=== PATIENT | male | born 2000 | race Caucasian/White ===

== ENCOUNTER 2021-04-06 14:38 | Emergency (ER) | payer OTHER, SELFPAY ==
[2021-04-06 14:41] VITALS: BP 131/64; PULSE 101; RESP 14; TEMP 36.2; O2SAT 99
--- NOTE | 2021-04-06 14:53 | ED.NAVMDI ---
HPI - Nausea/Vomiting/Diarrhea General Chief complaint: Nausea/Vomiting/Diarrhea Stated complaint: vomiting blood Time Seen by Provider: 04/06/21 14:49 Related Data Allergies Allergy/AdvReac Type Severity Reaction Status Date / Time No Known Allergies Allergy Verified 04/06/21 14:50 Course Vital Signs Vital signs: Vital Signs Temperature 36.2 C L 04/06/21 14:41 Pulse Rate 101 H 04/06/21 14:41 Respiratory Rate 14 04/06/21 14:41 Blood Pressure 131/64 04/06/21 14:41 Pulse Oximetry 99 04/06/21 14:41 Temperature 36.2 C L 04/06/21 14:41 Pulse Rate 101 H 04/06/21 14:41 Respiratory Rate 14 04/06/21 14:41 Blood Pressure 131/64 04/06/21 14:41 Pulse Oximetry 99 04/06/21 14:41
[2021-04-06] MEDS: SODIUM CHLORIDE 0.9% IV 1,000 ML 999 ML IV CONT (15:09)
[2021-04-06] MEDS: PANTOPRAZOLE SODIUM IV 40 MG VIAL IV PUSH (15:15)
[2021-04-06 15:17] LABS: Hematocrit 47.6 % (42.0-52.0); Hemoglobin 16.3 g/dL (14.0-18.0); Mean Corpuscular HGB Conc 34.2 g/dl (32-36); Mean Corpuscular Hemoglobin 31.1 pg (26-34); Mean Corpuscular Volume 90.8 fl (80-100); Mean Platelet Volume 10.3 fl (7.4-10.4); Platelet Count Result 225 k/mm3 (150-375); Red Blood Count 5.24 M/mm3 (4.6-6.20); Red Cell Distribution Width 12.7 % (11.5-14.5); White Blood Count 12.5 K/mm3 (4.5-10.0)
[2021-04-06] MEDS: ONDANSETRON INJ 4 MG/2 ML VIAL IV PUSH (15:17)
[2021-04-06 15:24] LABS: Add Urine Microscopic? YES; Appearance Urine Clear (Clear); Bilirubin Urine Negative (Negative); Blood Urine Negative (Negative); Color Urine Amber (Yellow); Glucose Urine UA Negative (Negative); Ketones Urine Negative (Negative); Leukocyte Esterase Ur Negative LEU/UL (Negative); Mucus Urine Heavy /lpf; Nitrate Urine Negative (Negative); Protein Urine 1+ mg/dL (Negative); RBC Urine 0-2 /hpf (0-2); Specific Grav Ur 1.028 (1.001-1.035); Urobilinogen Urine Negative mg/dL (<2.0); WBC Urine 0-3 /hpf
[2021-04-06 15:29] LABS: Alanine Aminotransferase 49 U/L (4-50); Alkaline Phosphatase 119 U/L (38-126); Anion Gap 11 mmol/L (8-16); Aspartate Amino Transferase 36 U/L (17-59); Bilirubin,Total 1.4 mg/dL (0.2-1.3); Blood Urea Nitrogen 13 mg/dL (9-20); Calcium 9.7 mg/dL (8.4-10.2); Carbon Dioxide 27 mmol/L (22-30); Chloride 100 mmol/L (98-107); Estimated CRCL calculation 179 ml/min; Estimated Glomerular Filt Rate > 60; Glucose 114 mg/dL (75-110); Lipase 25 U/L (23-300); Potassium 3.9 mmol/L (3.4-5.0); Sodium 138 mmol/L (137-145)
[2021-04-06 15:45] LABS: Band Neutrophils Percent 10 % (0-6); Monocytes Absolute Manual 0.62 K/mm3 (0.1-0.90); Monocytes Percent Manual 5 % (3-9); Neutrophils Absolute Manual 11.37 K/mm3 (1.3-6.7); Neutrophils Percent Manual 81 % (46-73); Platelet Estimate Adequate (Adequate); Total Cells Counted 100
[2021-04-06] MEDS: HYOSCYAMINE SULFATE 0.125 MG TABLET PO (15:51)
--- NOTE | 2021-04-06 15:53 | ED.GENADULT ---
HPI - General Adult General Chief complaint: Nausea/Vomiting/Diarrhea Stated complaint: vomiting blood Time Seen by Provider: 04/06/21 14:49 Source: patient, family and RN notes reviewed Mode of arrival: ambulatory Limitations: no limitations History of Present Illness HPI narrative: Patient is a 21-year-old male who presents to emergency department for evaluation of nausea vomiting and diarrhea that began this morning patient has been at home with family members with similar symptoms patient has not taken anything for his symptoms notes he has inability to tolerate p.o. intake notes discomfort of the abdomen secondary to nausea and vomiting patient on arrival does not appear distressed or uncomfortable Related Data Allergies Allergy/AdvReac Type Severity Reaction Status Date / Time No Known Allergies Allergy Verified 04/06/21 14:50 Review of Systems Review of Systems: All systems reviewed & are unremarkable except as noted in HPI and below Exam Narrative: Exam Narrative: GENERAL: Well-appearing, well-nourished, and in no acute distress. HEAD: Normocephalic, atraumatic. EYES: PERRLA and EOMI. ENT: Nares clear, no rhinorrhea or epistaxis. Mucous membranes moist. CHEST: Clear to auscultation. No respiratory distress. No wheezes rales or rhonchi HEART: Regular rate and rhythm. No murmur heard. Normal peripheral pulses. ABDOMEN: Soft, generalized tenderness, nondistended EXTREMITIES: Normal range of motion. No edema. SKIN: Warm, dry, no rash. NEURO: No focal deficits. Alert and oriented x3. PSYCH: Normal mood and affect. Course Course Emergency Course: Patient was hydrated evaluated with improvement other family members with similar symptoms felt that the patient can likely be discharged at this time given his improvement and tolerating p.o. intake will be provided with reasons to follow-up afebrile nontoxic-appearing no distress Vital Signs Vital signs: Vital Signs Temperature 97.1 F L 04/06/21 14:41 Pulse Rate 101 H 04/06/21 14:41 Respiratory Rate 14 04/06/21 14:41 Blood Pressure 131/64 04/06/21 14:41 Pulse Oximetry 99 04/06/21 14:41 Temperature 97.1 F L 04/06/21 14:41 Pulse Rate 101 H 04/06/21 14:41 Respiratory Rate 14 04/06/21 14:41 Blood Pressure 131/64 04/06/21 14:41 Pulse Oximetry 99 04/06/21 14:41 Medical Decision Making MDM Narrative Medical decision making narrative: Patient evaluated with vomiting diarrhea history acute onset improvement of symptoms hydrated the emergency department will be discharged home treated symptomatically and given reasons to return Vital Signs Vital Signs: Vital Signs Temperature 97.1 F L 04/06/21 14:41 Pulse Rate 101 H 04/06/21 14:41 Respiratory Rate 14 04/06/21 14:41 Blood Pressure 131/64 04/06/21 14:41 Pulse Oximetry 99 04/06/21 14:41 Temperature 97.1 F L 04/06/21 14:41 Pulse Rate 101 H 04/06/21 14:41 Respiratory Rate 14 04/06/21 14:41 Blood Pressure 131/64 04/06/21 14:41 Pulse Oximetry 99 04/06/21 14:41 Lab Data Result diagrams: 04/06/21 15:09 04/06/21 15:10 Labs: Lab Results 04/06/21 04/06/21 04/06/21 Range/Units 15:09 15:09 15:10 WBC 12.5 H (4.5-10.0) K/mm3 RBC 5.24 (4.6-6.20) M/mm3 Hgb 16.3 (14.0-18.0) g/dL Hct 47.6 (42.0-52.0) % MCV 90.8 (80-100) fl MCH 31.1 (26-34) pg MCHC 34.2 (32-36) g/dl RDW 12.7 (11.5-14.5) % Plt Count 225 (150-375) k/mm3 MPV 10.3 (7.4-10.4) fl Immature Gran % (Auto) Not Reportable Neut % (Auto) Not Reportable Lymph % (Auto) Not Reportable [place] % (Auto) Not Reportable Eos % (Auto) Not Reportable Baso % (Auto) Not Reportable Lymph # (Auto) Not Reportable [place] # (Auto) Not Reportable Eos # (Auto) Not Reportable Baso # (Auto) Not Reportable Abs Immat Gran (auto) Not Reportable Absolute Neuts (auto) Not Reportable Absolute Nucleate
[2021-04-06 16:00] VITALS: BP 129/62; PULSE 75; RESP 18; O2SAT 100
[2021-04-06] MEDS: LACTATED RINGERS 1,000 ML 999 ML IV CONT (16:03)
== END 2021-04-06 17:51 | disposition home or self-care (01) ==
PROVIDERS: Emergency Medicine Emergency Medical Services; Emergency Provider Emergency Medicine; PCP Family Medicine
DX: K52.9 Noninfective gastroenteritis and colitis, unspecified (principal); R10.9 Unspecified abdominal pain
CPT/HCPCS: 36415; 80053; 81001; 83690; 85025; 96361; 96374; 96375; 99284; A9270; C9113; J0131; J2405; J7030; J7120

== ENCOUNTER 2022-02-03 10:06 | Emergency (ER) | payer OTHER, SELFPAY ==
--- NOTE | 2022-02-03 10:11 | ED.URI ---
HPI - URI/Sore Throat General Chief Complaint: Upper Respiratory Infection Stated Complaint: sore throat Time Seen by Provider: 02/03/22 10:12 Source: patient and RN notes reviewed History of Present Illness HPI Narrative: Patient is a 21-year-old male who presents the urgent care with complaints of a sore throat that started on Monday. Patient states he has not felt great since Monday with 1 episode of vomiting. Patient reports of subjective fever with chills and sweats and decreased appetite. Patient has been taking ibuprofen, Sudafed and DayQuil. Patient denies of any ill contacts. Patient is not concerned of Covid. No other acute complaints. No acute distress noted. Patient aware of the plan of care. Some parts of this dictation were generated by voice recognition software and may contain typographical and/or grammatical inaccuracies. Related Data Allergies Allergy/AdvReac Type Severity Reaction Status Date / Time No Known Allergies Allergy Verified 04/06/21 14:50 Review of Systems Review of Systems: CONSTITUTIONAL: Reports of subjective fever with chills and sweats and fatigue EYES: Denies visual changes, redness, or discharge. ENT: Denies rhinorrhea, congestion, otalgia. Reports of sore throat CARDIOVASCULAR: Denies chest pain, palpitations, or edema. RESPIRATORY: Denies cough or dyspnea. GASTROINTESTINAL: Denies abdominal pain, nausea, vomiting, or diarrhea. GENITOURINARY: Denies dysuria or hematuria. SKIN: Denies rash or itching. MUSCULOSKELETAL: Denies back pain, joint pain, or myalgia. NEUROLOGIC: Denies headache, numbness, or weakness. All other systems reviewed are negative, except as documented in HPI. PMFSH Comments At the time of my signature, I reviewed and agree with the nursing past medical, surgical, social, and family history. There is no relevant family history pertinent to the patient complaint. Exam Narrative: GENERAL: This is a well-nourished, well-developed patient, in no apparent distress. HEAD: normocephalic, atraumatic. EYES: PERRL. Sclera clear/white. Vision is grossly intact. EARS: External ears normal, auditory canals clear and without drainage, TMs normal without perforation. Hearing grossly intact. NOSE: External nose normal with no obvious nasal discharge, nares without redness, no rhinorrhea. THROAT: Mucous membranes moist, mild erythema noted posterior pharynx with moderate postnasal drainage NECK: Neck supple, non-tender mild to moderate bilateral submandibular lymphadenopathy CARDIOVASCULAR: Regular rate and rhythm without murmurs, gallops, or rubs. RESPIRATORY: Clear to auscultation. Breath sounds equal bilaterally. No wheezes, rales, or rhonchi. SKIN: Slightly flushed. Warm, intact with no suspicious lesions or rash, good texture and turgor. NEURO: awake, alert, and oriented to person, place and time. There were no obvious focal neurologic abnormalities. EXTREMITIES: No clubbing, cyanosis, or edema. Course Course Level of Care: Express Care Visit Vital Signs Vital signs: Vital Signs Temperature 97.6 F 02/03/22 10:14 Pulse Rate 80 02/03/22 10:14 Respiratory Rate 16 02/03/22 10:14 Blood Pressure 141/94 H 02/03/22 10:14 Pulse Oximetry 99 02/03/22 10:14 Temperature 97.6 F 02/03/22 10:14 Pulse Rate 80 02/03/22 10:14 Respiratory Rate 16 02/03/22 10:14 Blood Pressure 141/94 H 02/03/22 10:14 Pulse Oximetry 99 02/03/22 10:14 Reviewed-patient is informed that they may have pre-hypertension or hypertension based on a blood pressure reading in the department. I recommend the patient call the primary care provider listed on their discharge instructions or a physician of their choice this week to arrange follow-up for further evaluation of possible pre-hypertension or hypertension. MDM - URI/Sore Throat MDM Narrative Medical decision making narrative: Reviewed lab results with the patient. He is aware that strep swab was positive. Advised the patient
[2022-02-03 10:14] VITALS: BP 141/94; PULSE 80; RESP 16; TEMP 36.4; O2SAT 99
== END 2022-02-03 10:35 | disposition home or self-care (01) ==
PROVIDERS: Emergency Provider Nurse Practitioner Family; PCP Family Medicine
DX: J02.0 Streptococcal pharyngitis (principal)
CPT/HCPCS: 87880; 99213; G0463

== ENCOUNTER → 2022-02-24 10:11 | Outpatient (CLI) | payer OTHER, SELFPAY ==
--- NOTE | ~2022-02-24 | XR_ITS ---
EXAMINATION: XR lumbar spine min 4V EXAM DATE: 02/24/2022 10:32 INDICATION: Low Back Pain Into Left Posterior Hip X 1yr No Injury. TECHNIQUE: Lumber spine frontal, lateral, bilateral oblique projections. Coned down frontal and lat eral L5-S1 lumbar projections for interpretation. There is no prior study for comparison. FINDINGS: No spondylolysis. Mild L4-5 and L5-S1 facet arthropathy. The vertebral bodies are aligned i n the AP dimension. Vertebral body and disc heights are well-maintained. Sacrum, sacroiliac joints, s acral arcuate lines are intact. Paraspinal soft tissue is unremarkable. IMPRESSION: Mild lower lumbar facet arthropathy, otherwise unremarkable exam. Reviewed, dictated and finalized at location A.
== END ==
PROVIDERS: PCP Chiropractor; Visit Provider Chiropractor
DX: M54.50 Low back pain, unspecified (principal)
CPT/HCPCS: 72110

== ENCOUNTER 2022-06-18 19:44 | Emergency (ER) | payer OTHER, SELFPAY ==
[2022-06-18] VITALS (9 sets, daily range): BP systolic 107–125; BP diastolic 75–89; PULSE 60–75; RESP 16–18; TEMP 36.6; O2SAT 98–100
[2022-06-18 20:04] LABS: Basophils Percent Auto 0.3 % (0.2-1.2); Eosinophils Percent Auto 0.4 % (0-4.4); Hematocrit 45.4 % (42.0-52.0); Hemoglobin 15.3 g/dL (14.0-18.0); Immature Granulocyte Absolute 0.01 K/mm3 (0.00-0.031); Immature Granulocyte Percent A 0.1 % (0-0.5); Lymphocytes Absolute Auto 0.89 K/mm3 (0.9-3.2); Lymphocytes Percent Auto 12.5 % (18.3-44.2); Mean Corpuscular HGB Conc 33.7 g/dl (32-36); Mean Corpuscular Hemoglobin 30.4 pg (26-34); Mean Corpuscular Volume 90.3 fl (80-100); Mean Platelet Volume 9.9 fl (7.4-10.4); Monocytes Absolute Auto 0.4 K/mm3 (0.1-0.6); Monocytes Percent Auto 6.2 % (2.6-8.5); Neutrophils Absolute Auto 5.7 K/mm3 (1.3-6.7); Neutrophils Percent Auto 80.5 % (45.5-73.1); Platelet Count Result 214 k/mm3 (150-375); Red Blood Count 5.03 M/mm3 (4.6-6.20); Red Cell Distribution Width 12.6 % (11.5-14.5); White Blood Count 7.1 K/mm3 (4.5-10.0)
[2022-06-18 20:17] LABS: Alanine Aminotransferase 44 U/L (6-50); Albumin Level 4.9 g/dL (3.5-5.1); Alkaline Phosphatase 155 U/L (38-126); Anion Gap 12 mmol/L (8-16); Aspartate Amino Transferase 37 U/L (17-59); Bilirubin,Total 1.1 mg/dL (0.2-1.3); Blood Urea Nitrogen 13 mg/dL (9-20); Calcium 9.1 mg/dL (8.4-10.2); Carbon Dioxide 28 mmol/L (22-30); Chloride 98 mmol/L (98-107); Estimated CRCL calculation 166 ml/min; Estimated Glomerular Filt Rate > 60; Glucose 116 mg/dL (65-110); Lipase 30 U/L (23-300); Potassium 4.2 mmol/L (3.4-5.0); Sodium 138 mmol/L (137-145)
[2022-06-18 20:28] LABS: Appearance Urine Clear (Clear); Bilirubin Urine Negative (Negative); Blood Urine Negative (Negative); Color Urine Yellow (Yellow); Glucose Urine UA Negative (Negative); Ketones Urine Negative (Negative); Leukocyte Esterase Ur Negative LEU/UL (Negative); Nitrate Urine Negative (Negative); Protein Urine Negative (Negative)
[2022-06-18 20:31] LABS: Mucus Urine Rare /lpf; RBC Urine 0-2 /hpf (0-2); Squamous Epithelial Cell Urine Rare /hpf (Few)
[2022-06-18 20:32] LABS: Add Urine Microscopic? YES
--- NOTE | 2022-06-18 21:07 | ED.NAVMDI ---
HPI - Nausea/Vomiting/Diarrhea General Chief complaint: Nausea/Vomiting/Diarrhea Stated complaint: N/V Time Seen by Provider: 06/18/22 21:00 History of Present Illness HPI Narrative: 22-year-old male presents emergency room for evaluation of nausea and vomiting since 3:00 this afternoon. Patient states he believes he got sick from what he ate for lunch. Reports occasional abdominal cramping following the vomiting. Reports vomitus is nonbilious and nonbloody. Denies any constipation or diarrhea. Related Data Allergies Allergy/AdvReac Type Severity Reaction Status Date / Time No Known Allergies Allergy Verified 06/18/22 21:24 Review of Systems Review of Systems: CONSTITUTIONAL: Denies fever, chills, or sweats. EYES: Denies visual changes, redness, or discharge. ENT: Denies rhinorrhea, congestion, sore throat, or otalgia. CARDIOVASCULAR: Denies chest pain, palpitations, or edema. RESPIRATORY: Denies cough or dyspnea. GASTROINTESTINAL: Reports nausea and vomiting GENITOURINARY: Denies dysuria or hematuria. SKIN: Denies rash or itching. MUSCULOSKELETAL: Denies back pain, joint pain, or myalgia. NEUROLOGIC: Denies headache, numbness, dizziness, or weakness. PSYCHIATRIC: Denies anxiety or depression. Course Course Emergency Course: GENERAL: Well-appearing, well-nourished, no physical limitations, and in no acute distress. HEAD: Normocephalic, atraumatic. EYES: Conjunctivae normal, PERRLA and EOMI. CHEST: Clear to auscultation. No respiratory distress. No wheezes rales or rhonchi. No tenderness. HEART: Regular rate and rhythm. No murmur heard. Normal peripheral pulses. ABDOMEN: Soft, nontender, nondistended, normal active bowel sounds. EXTREMITIES: Normal range of motion. No edema. No clubbing or cyanosis SKIN: Warm, dry, no rash. No noted wounds NEURO: No focal deficits. Alert and oriented x3. MAEW. CN's II-XI intact bilaterally, normal gait PSYCH: Cooperative. Normal mood and affect. Vital Signs Vital signs: Vital Signs Temperature 36.6 C 06/18/22 19:50 Pulse Rate 60 06/18/22 19:50 Respiratory Rate 16 06/18/22 19:50 Blood Pressure 125/75 06/18/22 19:50 Pulse Oximetry 100 07/30/22 19:50 Temperature 36.6 C 06/18/22 19:50 Pulse Rate 75 06/18/22 21:47 Respiratory Rate 18 06/18/22 21:47 Blood Pressure 107/89 06/18/22 21:47 Pulse Oximetry 99 06/18/22 22:15 MDM - Nausea/Vomiting/Diarrhea Lab Data Result diagrams: 06/18/22 19:59 06/18/22 19:59 Labs: Lab Results 06/18/22 06/18/22 06/18/22 Range/Units 19:59 19:59 20:22 WBC 7.1 (4.5-10.0) K/mm3 RBC 5.03 (4.6-6.20) M/mm3 Hgb 15.3 (14.0-18.0) g/dL Hct 45.4 (42.0-52.0) % MCV 90.3 (80-100) fl MCH 30.4 (26-34) pg MCHC 33.7 (32-36) g/dl RDW 12.6 (11.5-14.5) % Plt Count 214 (150-375) k/mm3 MPV 9.9 (7.4-10.4) fl Immature Gran % (Auto) 0.1 (0-0.5) % Neut % (Auto) 80.5 H (45.5-73.1) % Lymph % (Auto) 12.5 L (18.3-44.2) % [place] % (Auto) 6.2 (2.6-8.5) % Eos % (Auto) 0.4 (0-4.4) % Baso % (Auto) 0.3 (0.2-1.2) % Lymph # (Auto) 0.89 L (0.9-3.2) K/mm3 [place] # (Auto) 0.4 (0.1-0.6) K/mm3 Eos # (Auto) 0.0 (0-0.3) K/mm3 Baso # (Auto) 0.0 (0.0-0.1) K/mm3 Abs Immat Gran (auto) 0.01 (0.00-0.031) K/mm3 Absolute Neuts (auto) 5.7 (1.3-6.7) K/mm3 Absolute Nucleated RBC 0.0 (0.0-0.012) K/mm3 Nucleated RBC % 0.0 (0.0-0.2) % Sodium 138 (137-145) mmol/L Potassium 4.2 (3.4-5.0) mmol/L Chloride 98 (98-107) mmol/L Carbon Dioxide 28 (22-30) mmol/L Anion Gap 12 (8-16) mmol/L BUN 13 (9-20) mg/dL Creatinine 0.90 (0.7-1.3) mg/dL Estim Creat Clear Calc 166 ml/min Estimated GFR > 60 (59 - ) Glucose 116 H (65-110) mg/dL Calcium 9.1 (8.4-10.2) mg/dL Total Bilirubin 1.1 (0.2-1.3) mg/dL AST 37 (17-59) U/L ALT 44 (6-50) U/L Alkaline Phosphatase 155 H
[2022-06-18] MEDS: DICYCLOMINE HCL INJ 20 MG/2 ML VIAL IM (21:26)
[2022-06-18] MEDS: SODIUM CHLORIDE 0.9% IV 1,000 ML 999 ML IV CONT (21:26)
[2022-06-18] MEDS: ONDANSETRON INJ 4 MG/2 ML VIAL IV PUSH (21:26)
== END 2022-06-18 22:33 | disposition home or self-care (01) ==
PROVIDERS: Emergency Medicine; Emergency Provider Nurse Practitioner Family; PCP Chiropractor
DX: A05.9 Bacterial foodborne intoxication, unspecified (principal)
CPT/HCPCS: 36415; 80053; 81001; 83690; 85025; 96361; 96372; 96374; 99284; J0500; J2405; J7030

== ENCOUNTER 2022-06-19 14:04 | Emergency (ER) | payer OTHER, SELFPAY ==
--- NOTE | ~2022-06-19 | CT_ITS ---
EXAMINATION: CT brain wo con DATE: 06/19/2022 17:10 INDICATION: dizziness . TECHNIQUE: Computed tomography (CT) of the head was performed without intravenous contrast. The mA wa s adjusted according to patient size. Iterative reconstruction technique was employed. The dose-lengt h product was 605.33 mGy-cm. COMPARISON: None FINDINGS: No acute intracranial hemorrhage or extra-axial fluid collection. No hydrocephalus, mass, or herniation. No acute ischemic infarct. Unremarkable dural venous sinus attenuation. No acute osseous abnormality. The aerated spaces are clear. IMPRESSION: No acute intracranial process. Reviewed, dictated and finalized at location K.
[2022-06-19 14:13] VITALS: BP 135/91; PULSE 67; RESP 20; TEMP 36.2; O2SAT 100
--- NOTE | 2022-06-19 14:22 | ECG_ITS ---
Measurements Intervals [place] Rate: 67 P: -1 MS: 160 QRS: 61 QRSD: 101 T: 27 QT: 392 QTc: 414 Interpretive Statements SINUS RHYTHM MINIMAL Q WAVES- INF/LAT LEADS BASELINE ARTIFACT- V1-V2 BORDERLINE ECG Electronically Signed On 06-19-2022 21:50:24 CDT by Juancho Baeza D.O.
--- NOTE | 2022-06-19 16:50 | ED.GENADULT ---
HPI - General Adult General Chief complaint: Unspecified Stated complaint: dizzy Time Seen by Provider: 06/19/22 16:55 History of Present Illness HPI narrative: 22-year-old male presents to the emergency room for reevaluation of nausea vomiting and a new onset of dizziness. Patient was seen here yesterday and diagnosed with gastroenteritis/food poisoning. Patient states this morning he began experiencing dizziness, and states the room was spinning. Patient's girlfriend's mother told him to come here because he was not getting enough oxygen to his brain. Related Data Allergies Allergy/AdvReac Type Severity Reaction Status Date / Time No Known Allergies Allergy Verified 06/18/22 21:24 Review of Systems Review of Systems: CONSTITUTIONAL: Denies fever, chills, or sweats. EYES: Denies visual changes, redness, or discharge. ENT: Denies rhinorrhea, congestion, sore throat, or otalgia. CARDIOVASCULAR: Denies chest pain, palpitations, or edema. RESPIRATORY: Denies cough or dyspnea. GASTROINTESTINAL: GENITOURINARY: Denies dysuria or hematuria. SKIN: Denies rash or itching. MUSCULOSKELETAL: Denies back pain, joint pain, or myalgia. NEUROLOGIC: Reports dizziness PSYCHIATRIC: Denies anxiety or depression. Exam Narrative: GENERAL: Well-appearing, well-nourished, no physical limitations, and in no acute distress. HEAD: Normocephalic, atraumatic. EYES: Conjunctivae normal, PERRLA and EOMI. ENT: External nose normal, Nares clear, no rhinorrhea or epistaxis. Mucous membranes moist. Oropharynx without tonsillar hypertrophy exudate or other lesions. External ears normal, bilateral TMs normal bilaterally with mild ceruminosis NECK: Supple. No meningeal signs. No adenopathy or masses. No carotid bruits or JVD CHEST: Clear to auscultation. No respiratory distress. No wheezes rales or rhonchi. No tenderness. HEART: Regular rate and rhythm. No murmur heard. Normal peripheral pulses. ABDOMEN: Soft, nontender, nondistended, normal active bowel sounds. EXTREMITIES: Normal range of motion. No edema. No clubbing or cyanosis SKIN: Warm, dry, no rash. No noted wounds NEURO: No focal deficits. Alert and oriented x3. MAEW. CN's II-XI intact bilaterally, normal gait PSYCH: Cooperative. Normal mood and affect. Course Vital Signs Vital signs: Vital Signs Temperature 36.2 C L 06/19/22 14:13 Pulse Rate 06/19/22 14:13 Respiratory Rate 06/19/22 14:13 Blood Pressure 135/91 H 06/19/22 14:13 Pulse Oximetry 100 06/19/22 14:13 Oxygen Delivery Room Air 06/19/22 14:13 Temperature 36.2 C L 06/19/22 14:13 Pulse Rate 06/19/22 14:13 Respiratory Rate 06/19/22 14:13 Blood Pressure 135/91 H 06/19/22 14:13 Pulse Oximetry 100 06/19/22 14:13 Oxygen Delivery Room Air 06/19/22 14:13 Medical Decision Making Vital Signs Vital Signs: Vital Signs Temperature 36.2 C L 06/19/22 14:13 Pulse Rate 06/19/22 14:13 Respiratory Rate 06/19/22 14:13 Blood Pressure 135/91 H 06/19/22 14:13 Pulse Oximetry 06/19/22 14:13 Oxygen Delivery Room Air 06/19/22 14:13 Temperature 36.2 C L 06/19/22 14:13 Pulse Rate 06/19/22 14:13 Respiratory Rate 06/19/22 14:13 Blood Pressure 135/91 H 06/19/22 14:13 Pulse Oximetry 06/19/22 14:13 Oxygen Delivery Room Air 06/19/22 14:13 Lab Data Result diagrams: 06/19/22 17:31 06/19/22 17:31 Labs: Lab Results 06/19/22 06/19/22 06/19/22 Range/Units 17:31 17:31 17:31 WBC 9.2 (4.5-10.0) K/mm3 RBC 5.29 (4.6-6.20) M/mm3 Hgb 16.0 (14.0-18.0) g/dL Hct 47.3 (42.0-52.0) % MCV 89.4 (80-100) fl MCH 30.2 (26-34) pg MCHC 33.8 (32-36) g/dl RDW 12.6 (11.5-14.5) % Plt Count 244 (150-375) k/mm3 MPV 10.3 (7.4-10.4) fl Immature Gran % (Auto) 0.2 (0-0.5) % Neut % (Auto) 87.4 H (45.5-73.1) % Lymph % (Auto) 6.9 L (18.3-44.2) % [place] % (Auto) 5.3 (2.
[2022-06-19] MEDS: SODIUM CHLORIDE 0.9% IV 1,000 ML 999 ML IV CONT (17:28)
[2022-06-19] MEDS: METOCLOPRAMIDE HCL INJ 10 MG/2 ML VIAL IV PUSH (17:28)
[2022-06-19] MEDS: diphenhydrAMINE HCl INJ 50 MG/ML VIAL 25 MG IV PUSH (17:29)
[2022-06-19 17:37] LABS: Basophils Percent Auto 0.2 % (0.2-1.2); Hematocrit 47.3 % (42.0-52.0); Immature Granulocyte Absolute 0.02 K/mm3 (0.00-0.031); Immature Granulocyte Percent A 0.2 % (0-0.5); Lymphocytes Absolute Auto 0.63 K/mm3 (0.9-3.2); Lymphocytes Percent Auto 6.9 % (18.3-44.2); Mean Corpuscular HGB Conc 33.8 g/dl (32-36); Mean Corpuscular Hemoglobin 30.2 pg (26-34); Mean Corpuscular Volume 89.4 fl (80-100); Mean Platelet Volume 10.3 fl (7.4-10.4); Monocytes Absolute Auto 0.5 K/mm3 (0.1-0.6); Monocytes Percent Auto 5.3 % (2.6-8.5); Neutrophils Percent Auto 87.4 % (45.5-73.1); Platelet Count Result 244 k/mm3 (150-375); Red Blood Count 5.29 M/mm3 (4.6-6.20); Red Cell Distribution Width 12.6 % (11.5-14.5); White Blood Count 9.2 K/mm3 (4.5-10.0)
[2022-06-19 17:52] LABS: Alanine Aminotransferase 42 U/L (6-50); Albumin Level 4.9 g/dL (3.5-5.1); Alkaline Phosphatase 150 U/L (38-126); Anion Gap 15 mmol/L (8-16); Aspartate Amino Transferase 37 U/L (17-59); Bilirubin,Total 1.2 mg/dL (0.2-1.3); Blood Urea Nitrogen 10 mg/dL (9-20); Calcium 9.8 mg/dL (8.4-10.2); Carbon Dioxide 22 mmol/L (22-30); Chloride 103 mmol/L (98-107); Estimated CRCL calculation 166 ml/min; Estimated Glomerular Filt Rate > 60; Glucose 116 mg/dL (65-110); Sodium 140 mmol/L (137-145)
[2022-06-19 17:56] LABS: Troponin I < 0.012 ng/mL (0.000-0.034)
[2022-06-19 18:28] LABS: Amphetamine Screen Urine Negative (Negative); Barbiturate Screen Urine Negative (Negative); Benzodiazepines Screen Urine Negative (Negative); Cannabinoid Screen Urine Positive (Negative); Cocaine Screen Urine Negative (Negative); Methadone Screen Urine Negative (Negative); Opiate Screen Urine Negative (Negative); Phencyclidine Screen Urine Negative (Negative)
[2022-06-19 19:41] VITALS: BP 147/75; PULSE 65; RESP 20; O2SAT 100
== END 2022-06-19 19:42 | disposition home or self-care (01) ==
PROVIDERS: Emergency Medicine; Emergency Provider Nurse Practitioner Family; PCP Family Medicine
DX: R42 Dizziness and giddiness (principal); R94.31 Abnormal electrocardiogram [ECG] [EKG]
CPT/HCPCS: 36415; 70450; 80053; 80307; 84484; 85025; 93005; 96361; 96374; 96375; 99284; J1200; J2765; J7030

== ENCOUNTER → 2023-12-15 16:27 | Outpatient (CLI) | payer OTHER, SELFPAY ==
--- NOTE | ~2023-12-15 | XR_ITS ---
EXAMINATION: XR shoulder RT min 2V, XR clavicle RT DATE: 12/15/2023 16:51 INDICATION: Nontraumatic anterior right shoulder pain and swelling TECHNIQUE: 1. AP internally and externally rotated, AP oblique externally rotated and axillary views of the righ t shoulder were obtained. 2. AP and 10 degrees cephalad angled AP view of the right clavicle were obtained. COMPARISON: None FINDINGS: Normal alignment. No fracture. Glenohumeral joint is normal. Acromioclavicular joint is normal. Soft tissues are unremarkable. Visualized portion of the lungs are clear. IMPRESSION: Negative right shoulder and clavicle radiographs. Reviewed, dictated and finalized at location A. ECTOR IMPRESSION: Negative right shoulder and clavicle radiographs.
== END ==
PROVIDERS: PCP Chiropractor; Visit Provider Chiropractor
DX: M25.511 Pain in right shoulder (principal)
CPT/HCPCS: 73000; 73030

== ENCOUNTER 2024-01-01 09:07 | Emergency (ER) | payer OTHER, SELFPAY ==
[2024-01-01 09:14] VITALS: BP 128/58; PULSE 76; RESP 20; TEMP 36.6; O2SAT 100
--- NOTE | 2024-01-01 09:53 | ED.URI ---
HPI - URI/Sore Throat General Chief Complaint: Upper Respiratory Infection Stated Complaint: Sore Throat Time Seen by Provider: 01/01/24 09:45 Source: patient, RN notes reviewed and old records reviewed Mode of arrival: ambulatory Limitations: no limitations History of Present Illness HPI Narrative: 23-year-old male who presents to [facility] with complaints sore throat which started yesterday with increased symptoms today. Patient reports that he has been battling allergies for the past week and has been taking OTC sinus medication.Patient reports that girlfriend has been ill and was seen told she had virus. Patient reports no known fevers chills or body aches. MD elicited complaint: cough, sore throat, rhinorrhea and nasal congestion Pertinent past history: seasonal allergies Onset (ago): day(s) (day 2) Severity: moderate Able to tolerate fluids by mouth: Yes Exacerbating factors: swallowing Treatments prior to arrival: other (sinus medication) Related Data Home Medications Medication Instructions Recorded Confirmed buspirone 5 mg tablet 5 mg PO BID PRN 03/20/23 10/19/23 Allergies Allergy/AdvReac Type Severity Reaction Status Date / Time No Known Allergies Allergy Verified 10/19/23 09:36 Review of Systems Review of Systems: CONSTITUTIONAL: Denies malaise, chills, sweats, or fever. EYES: Denies visual changes, redness, or discharge. ENT: Reports rhinorrhea, congestion, sinus pain,no otalgia and positive for sore throat. CARDIOVASCULAR: Denies chest pain, palpitations, or edema. RESPIRATORY: Reports cough.? Denies dyspnea. GASTROINTESTINAL: Denies abdominal pain, nausea, vomiting, diarrhea SKIN: Denies rash or itching. MUSCULOSKELETAL: Denies myalgia. NEUROLOGIC: Denies headache. All systems reviewed & are unremarkable except as noted in HPI and below PMFSH Past Medical History Medical History Anxiety BMI 34.0-34.9,adult Encounter to establish care Generalized anxiety disorder with panic attacks Vertigo Family History Family History Sibling Asthma Depression Anxiety Mother Anxiety Depression Father Depression Anxiety Social History Social History Smoking status: Never smoker Alcohol intake: never Substance use: current Substance use type: marijuana Lack of Transportation: No Lack of Food: Never True Current Housing: I Have Housing Concerned About Future Housing: No Difficulty Paying Gas/Electric Bills: No Difficulty Paying for Meds: No Currently Unemployed: No Education: Associate Degree Difficulty w/ Childcare or Family Care: No Comments At time of signature, agree with nursing past medical, surgical, social and family history. There is no relevant family history pertinent to the presenting complaint Exam Narrative: GENERAL: Well-appearing, well-nourished, and in no acute distress. HEAD: Normocephalic EYES: PERRLA, conjunctivae clear ENT: Nares clear, turbinates edematous and erythematous, clear discharge. Mucous membranes moist. TM pearly mario with dull light reflex bilaterally; no tragal tenderness. Oropharynx erythematous without lesions. Tonsils mildly enlarged and without exudate, no drooling, no hoarseness, no trismus, uvula midline.post nasal discharge noted NECK: Supple. No lymphadenopathy CHEST: Clear to auscultation, breath sounds equal. No wheezing, rhonchi, rales, or stridor. No respiratory distress, speaks in full sentences.cough SAO2 100% on room air HEART: Regular rate and rhythm. No murmur heard. SKIN: Warm, dry, no rash. NEURO: Alert and oriented x3. PSYCH: Normal mood and affect Course Course Emergency Course: Patient is aware of diagnosis, understands and agrees to treatment plan.? Anticipatory guidance given.? Patient agrees to
== END 2024-01-01 10:11 | disposition home or self-care (01) ==
PROVIDERS: Emergency Provider Registered Nurse; PCP Nurse Practitioner Family
DX: J06.9 Acute upper respiratory infection, unspecified (principal); F41.9 Anxiety disorder, unspecified
CPT/HCPCS: 87081; 87880; 99213; G0463

== ENCOUNTER 2024-10-01 11:33 | Emergency (ER) | payer OTHER, SELFPAY ==
[2024-10-01 11:36] VITALS: BP 115/71; PULSE 70; RESP 20; TEMP 36.3; O2SAT 100
[2024-10-01 12:10] LABS: EDSTREPNEGPOS1 Negative (Negative)
--- NOTE | 2024-10-01 12:18 | ED_ITS ---
HPI - URI/Sore Throat General Chief Complaint: Upper Respiratory Infection Stated Complaint: throat Time Seen by Provider: 10/01/24 12:18 Source: patient, RN notes reviewed and old records reviewed Mode of arrival: ambulatory Limitations: no limitations History of Present Illness HPI Narrative: 24-year-old male to [facility] with complaint of sore throat for 4 days gotten worse today. Patient reports that he is a strep carrier. Patient reports treating at home with Tylenol p.m. and otc allergy medicine with little relief. Patient able to tolerate fluids by mouth. Patient resting in exam room in acute distress. Related Data Allergies Allergy/AdvReac Type Severity Reaction Status Date / Time No Known Allergies Allergy Verified 10/01/24 11:45 Review of Systems Review of Systems: All systems reviewed & are unremarkable except as noted in HPI and below Constitutional: Constitutional: Reports no additional constitutional complaints Eyes: Eyes: Reports no additional eye complaints ENT: Reports as per HPI and Reports sore throat Cardiovascular: Cardiovascular: Reports no additional cardiovascular complaints, Denies chest pain and Denies dyspnea Respiratory: Respiratory: Reports no additional respiratory complaints, Denies cough and Denies dyspnea Musculoskeletal: Musculoskeletal: Reports no additional musculoskeletal complaints Neurologic: Reports system reviewed and no additional complaints, except as documented Psychiatric: Psychiatric: Reports no additional psychiatric complaints PMFSH Past Medical History Medical History Anxiety BMI 34.0-34.9,adult Elevated glucose Encounter to establish care Generalized anxiety disorder with panic attacks Seasonal allergies Vertigo Family History Family History Sibling Asthma Depression Anxiety Mother Anxiety Depression Father Depression Anxiety Social History Social History Smoking status: Never smoker Alcohol intake: never Substance use: current Substance use type: marijuana Lack of Transportation: No Lack of Food: Never True Current Housing: I Have Housing Concerned About Future Housing: No Difficulty Paying Gas/Electric Bills: No Difficulty Paying for Meds: No Currently Unemployed: No Education: Associate Degree Difficulty w/ Childcare or Family Care: No Comments At the time of my signature, I reviewed and agree with the nursing past medical, surgical, social, and family history. There is no relevant family history pertinent to the patient complaint. Exam Const: General: cooperative, healthy appearing, comfortable, no acute distress, alert and well nourished Nutritional Appearance: well nourished Orientation/consciousness: patient oriented x3 Limitations: no limitations HENMT: Head: normal to inspection Ears: external ears normal Face/Nose/Sinus: Normal external nose present, Normal nares present, normal facial exam, No erythema and No edema Face and sinus: normal facial exam, no erythema and no edema Mouth: Yes Normal oral and palatal mucosa present Throat: posterior oropharynx abnormal erythema and postnasal drainage Eyes: General: appearance normal, both eyes and all related structures Neck: Neck: normal visual inspection, full ROM and no meningeal signs Lymphatic: no lymphadenopathy noted and no lymphedema noted Chest: Chest palpation & inspection: normal inspection of the chest Resp: Effort & Inspection: normal respiratory effort and able to speak in complete sentences Auscultation: clear to auscultation bilaterally Cardio: Jugular venous distension: no JVD Rate: regular rate Rhythm: regular rhythm Back/Spine/Pelvis: Cervical Spine: cervical ROM normal Skin: General skin exam: normal color, no rashes or lesions noted and turgor normal Neuro: General: patient oriented x3, gait normal, moves all extremities and no meningeal signs Speech: normal speech Gait exam (Neuro): Normal gait present Extrem: General: normal to inspection, full ROM and capillary refill normal Psych: Appearance: grossly normal and well kempt Course Course Emergency Course: Some parts of this dictation were generated by voice recognition software and may contain typographical and/or grammatical inaccuracies. Level of Care: Express Care Visit Vital Signs Vital signs: Vital Signs Temperature 36.3 C L 10/01/24 11:36 Pulse Rate 70 10/01/24 11:36 Respiratory Rate 20 10/01/24 11:36 Blood Pressure 115/71 10/01/24 11:36 Pulse Oximetry 100 10/01/24 11:36 Oxygen Delivery Room Air 10/01/24 11:36 Temperature 36.3 C L 10/01/24 11:36 Pulse Rate 70 10/01/24 11:36 Respiratory Rate 20 10/01/24 11:36 Blood Pressure 115/71 10/01/24 11:36 Pulse Oximetry 100 10/01/24 11:36 Oxygen Delivery Room Air 10/01/24 11:36 reviewed MDM - URI/Sore Throat MDM Narrative Medical decision making narrative: 24-year-old male to [facility] with complaint of sore throat for 4 days gotten worse today. Patient reports that he is a strep carrier. Patient reports t reating at home with Tylenol p.m. and otc allergy medicine with little relief. Patient able to tolerate fluids by mouth. Patient resting in exam room in acute distress. On exam, posterior oropharynx erythematous with postnasal drainage. Patient tested negative for strep in clinic. Culture sent. Patient is sitting comfortably in exam room nontoxic in appearance. Patient appropriate for outpatient treatment and follow-up. Discharge instructions reviewed with patient, as well as provided in writing per nursing staff. The instructions also include specific and strict return/GO TO THE ER as well as f/u information. All questions have been answered, and the patient deny any further questions with discharge and discharge plan. Some parts of this dictation were generated by voice recognition software and may contain typographical and/or grammatical inaccuracies. Differential Diagnosis Differential diagnosis: Likely upper respiratory infection, croup, otitis media, sinusitis, viral infection, bronchitis, influenza and pharyngitis Lab Data Labs: Lab Results 10/01/24 Range/Units 11:42 POC Grp A Strep Screen Negative (Negative) Discharge Plan Discharge Clinical Impression: Pharyngitis Patient Disposition: Home, Self-Care Condition: Stable Instructions: Pharyngitis (ED) Additional Instructions: Your rapid strep swab was negative today at [facility]. A throat culture will be sent to the laboratory for further testing. If the test is positive, you will receive a phone call within 48 hours and an appropriate antibiotic will be initiated at that time. -Alternate Tylenol and Motrin per package directions for fever or pain. -Antihistamine medication such as Benadryl at night and Zyrtec/Claritin/Jessica during the day can help improve symptoms. -Use Flonase twice a day for 5 days then daily to help reduce the inflammation and dry up your sinuses. -You can also use Sudafed or Mucinex. Be sure to drink plenty of water with these medications at least 8 ounces with every dose and it is important to drink 8 to 10 glasses of water per day. Water is a natural decongestant -Eat and drink things that are easy to swallow, like tea or soup, or popsicles. -Oral rinses such as: Salt water gargles and/or may use topical anesthetic (eg. Chloraseptic spray) or lozenges to relieve dryness or throat pain). -Frequent hand washing or hand open shank coverer is one of the best ways to prevent spread of infection. -Using a vaporizer or humidifier at night will also help thin secretions and help with coughing up phlegm. -Follow up with primary care provider in 2-3 days if condition is not improving; or seek ER visit if you have trouble breathing, cannot drink enough fluids, have muffled voice, difficulty opening your mouth, or severe swelling. Prescriptions: No Action escitalopram oxalate [Lexapro] 20 mg tablet 20 mg PO DAILY Qty: 30 1RF Follow-up/Referrals: Elvie Vera NP [Primary Care Provider] - Stand Alone Forms: Work/School Release IP
== END 2024-10-01 12:42 | disposition home or self-care (01) ==
PROVIDERS: Emergency Provider Nurse Practitioner Family; PCP Nurse Practitioner Family
DX: J02.9 Acute pharyngitis, unspecified (principal); F12.90 Cannabis use, unspecified, uncomplicated
CPT/HCPCS: 87081; 87880; 99213; G0463